=== PATIENT | male | born 1985 | race Caucasian/White ===

== ENCOUNTER 2020-09-14 19:02 | Emergency (ER) | payer SELFPAY ==
[2020-09-14 19:17] VITALS: BP 194/130; PULSE 82
--- NOTE | 2020-09-14 19:29 | EDM.PDOC ---
ED HPI GENERAL MEDICAL PROBLEM - General Chief Complaint: ENT Problem Stated Complaint: TOOTHACHE Time Seen by Provider: 09/14/20 19:22 - History of Present Illness INITIAL COMMENTS - FREE TEXT/NARRATIVE: 34-year-old male presents the emergency room with a fairly severe tooth ache. This is been going on for the last couple of days but really got bad today. Is got a couple wisdom teeth her molars on the right side upper and lower that are just causing him all sorts of fits. He has really significant pain. He has some leftover antibiotics at home that he try to take he cannot recall what they are. Patient denies fevers or chills no breathing difficulties no shortness of breath. Right Oral/Mouth Pain Score (Numeric/FACES): 10 - Related Data Allergies Allergy/AdvReac Type Severity Reaction Status Date / Time codeine AdvReac Vomiting Verified 09/14/20 19:12 Home Meds: Home Meds Acetaminophen/HYDROcodone [War 325-5 MG] 1 - 2 tab PO Q6H #15 tablet 09/14/20 [Rx] Amoxicillin 500 mg PO TID #30 tab 09/14/20 [Rx] Past Medical History - Past Health History Medical/Surgical History: Denies Medical/Surgical History Social & Family History - Family History Family Medical History: No Pertinent Family History - Caffeine Use Caffeine Use: Reports: Coffee, Soda ED ROS ENT - Review of Systems Review Of Systems: See Below Constitutional: Reports: No Symptoms HEENT: Reports: Dental Pain. Denies: Ear Pain, Nose Pain, Rhinitis, Sinus Problem Respiratory: Reports: No Symptoms Cardiovascular: Reports: No Symptoms GI/Abdominal: Reports: No Symptoms ED EXAM, ENT - Physical Exam Exam: See Below Exam Limited By: No Limitations General Appearance: Alert, No Apparent Distress Ears: Normal External Exam, Normal Canal, Hearing Grossly Normal, Normal TMs Nose: Normal Inspection, Normal Mucousa, No Blood Mouth/Throat: Normal Inspection, Normal Gums, Normal Lips, Normal Oropharynx, Normal Teeth, Dental Pain (Right rear molars both upper and lower on the lower posterior may be a wisdom tooth he has significant decay and gum swelling in the area nothing obvious to drain at this time.) Head: Atraumatic, Normocephalic Neck: Normal Inspection, Supple, Non-Tender, Full Range of Motion. No: Lymphadenopathy (L), Lymphadenopathy (R) Respiratory/Chest: No Respiratory Distress, Lungs Clear, Normal Breath Sounds Cardiovascular: Regular Rate, Rhythm, No Edema, No Murmur Course - Vital Signs Last Recorded V/S: Last Vital Signs Temp 36.2 C 09/14/20 19:14 Pulse 82 09/14/20 19:14 Resp 18 09/14/20 19:14 BP 194/130 H 09/14/20 19:14 Pulse Ox 100 09/14/20 19:14 - Re-Assessments/Exams Free Text/Narrative Re-Assessment/Exam: 09/14/20 19:25 Blood pressure is quite elevated at this time could be due to the pain. I did discuss this with the patient and he really does not want this followed or worked up at this time. We will discharge him with amoxicillin and War No. 15 1 or 2 every 6hr as needed. Departure - Departure Time of Disposition: 19:26 Disposition: Home, Self-Care 01 Clinical Impression: Pain due to dental caries - Discharge Information Referrals: PCP,None [Primary Care Provider] - Additional Instructions: To the emergency room with any questions problems or worsening symptoms. You must follow-up with your regular healthcare provider for recheck of your blood pressure this week. [phone] is the number to the hospital clinic. Follow-up with a dentist as soon as you can this is how your teeth will get fixed. The more you come into the emergency room just for antibiotics you encourage the development of resistant bacterial organisms. This time we will give you some amoxicillin, this is an antibiotic take 1 3 times a day for 10 days. I have also given you some War take 1 or 2 every 6 hours as needed for pain. Allow 12 hours after using this medication before driving or returning to work. Your [facility] have been [place] electronically to [facility] in [place]. Tylenol does work of taken on a regular basis. However keep track daily Tylenol intake it should not exceed 4000 mg in a 24-hour period each pain pill that we have prescribed you also contains a little bit of Tylenol there is 325 mg and each 1 of those. Sepsis Event Note (ED) - Evaluation Sepsis Screening Result: No Definite Risk - Focused Exam Vital Signs: Vital Signs Temp Pulse Resp BP Pulse Ox 09/14/20 19:14 36.2 C 82 18 194/130 H 100
== END 2020-09-14 19:43 | disposition home or self-care (01) ==
LOC: JD.ED 19:02
DX: K02.9 Dental caries, unspecified (principal); Z88.5 Allergy status to narcotic agent
CPT/HCPCS: 99282; 99283

== ENCOUNTER 2025-04-15 03:46 | Emergency (ER) | payer MEDICAID ==
[2025-04-15] MEDS: Sodium Chloride 0.9% 1,000 ML IV ONE ×2 (03:46→04:42)
[2025-04-15 04:21] LABS: BASOPHILS ABSOLUTE AUTO 0.1 K/mm3 (0.0-0.2); BASOPHILS PERCENT AUTO 0.6 % (0.0-1.0); EOSINOPHILS ABSOLUTE AUTO 0.1 K/mm3 (0.0-0.4); EOSINOPHILS PERCENT AUTO 0.5 % (0.0-6.0); HEMATOCRIT 42.4 % (42.0-52.0); HEMOGLOBIN 14.7 gm/dl (14.0-18.0); IMMATURE GRAN PERCENT AUTO 0.9 % (0.0-0.4); LYMPHOCYTES ABSOLUTE AUTO 3.1 K/mm3 (1.0-4.8); LYMPHOCYTES PERCENT AUTO 28.8 % (24.0-44.0); MEAN CORPUSCULAR HEMOGLOBIN 31.4 pg (28.0-32.0); MEAN CORPUSCULAR HGB CONC 34.7 g/dl (32.0-36.0); MEAN CORPUSCULAR VOLUME 90.6 fl (83.0-99.0); MONOCYTES ABSOLUTE AUTO 0.8 K/mm3 (0.0-0.8); MONOCYTES PERCENT AUTO 7.7 % (0.0-8.0); NEUTROPHILS ABSOLUTE AUTO 6.7 K/mm3 (1.8-7.7); NEUTROPHILS PERCENT AUTO 61.5 % (41.0-71.0); PLATELET COUNT,PLT 308 K/mm3 (150-400); RED BLOOD CELL COUNT 4.68 M/mm3 (4.52-5.90); WHITE BLOOD CELL COUNT,WBC 10.87 K/mm3 (3.9-11.3)
[2025-04-15 04:26] LABS: APPEARANCE,URINE CLEAR (Clear); BILIRUBIN,URINE NEGATIVE (Negative); COLOR,URINE YELLOW (Yellow); GLUCOSE,URINE 3+ (Negative); KETONES,URINE TRACE (Negative); LEUKOCYTE ESTERASE,URINE NEGATIVE (Negative); NITRITE,URINE NEGATIVE (Negative); OCCULT BLOOD,URINE NEGATIVE (Negative); PH,URINE 6.5 (5.0-8.0); PROTEIN,URINE 1+ (Negative); UROBILINOGEN,URINE 0.2 (0.2-1.0)
[2025-04-15 04:32] LABS: A/G RATIO 1.3 (1-2); ALBUMIN 3.6 g/dl (3.4-5.0); ANION GAP 10.7 (5-15); BILIRUBIN TOTAL 0.9 mg/dL (0.2-1.0); BUN/CREATININE RATIO 13.8 (14-18); CREATININE 0.8 mg/dL (0.7-1.3); EST CRCL DRUG DOSING (CG) 105.19 mL/min; POTASSIUM,K 3.7 mEq/L (3.5-5.1); PROTEIN TOTAL,TP 6.4 g/dl (6.4-8.2)
[2025-04-15 04:50] LABS: BACTERIA,URINE RARE /hpf (FEW); CALCIUM OXALATE CRYSTALS,URINE FEW; EPITHELIAL CELLS,URINE 0-5 /hpf (0-5); HYALINE CASTS,URINE 0-5 /lpf (0-5); MUCUS,URINE FEW /hpf (FEW); RBC,URINE 0-5 /hpf (0-5); WBC,URINE 0-5 /hpf (0-5)
[2025-04-15 04:51] LABS: PH,VENOUS 7.44 (7.30-7.40)
[2025-04-15 04:52] LABS: BASE EXCESS VENOUS 1.7 (-4.0-2.0); BICARBONATE,VENOUS 25.8 meq/L (22-26); O2 SATURATION VENOUS 70.7
[2025-04-15] MEDS: Iopamidol 612 MG/ML 100 ML Bottle IVPUSH ONE (05:10)
[2025-04-15 07:07] VITALS: BP 124/96; PULSE 77
[2025-04-15] MEDS: Sodium Chloride 0.9% 1,000 ML ONE (09:27)
== END 2025-04-15 07:06 | disposition home or self-care (01) ==
LOC: JD.ED 03:46
DX: K52.9 Noninfective gastroenteritis and colitis, unspecified (principal); F17.200 Nicotine dependence, unspecified, uncomplicated; E11.65 Type 2 diabetes mellitus with hyperglycemia; Z88.5 Allergy status to narcotic agent; Z79.899 Other long term (current) drug therapy; Z86.16 Personal history of COVID-19
CPT/HCPCS: 36415; 74177; 74177-26; 80053; 81001; 82803; 82947; 83690; 83930; 85025; 87045; 87046; 87493; 87507; 87899; 96360; 99283; 99285-25; J7030; Q9967